=== PATIENT | female | born 1970 | race Caucasian/White ===

== ENCOUNTER 2020-03-27 13:42 | Emergency (ER) | payer BC, SELFPAY ==
[2020-03-27 13:45] VITALS: BP 161/110; PULSE 72; RESP 16; TEMP 36.7; O2SAT 96; BMI 33.4
--- NOTE | 2020-03-27 14:11 | XRR_ITS ---
PROCEDURE INFORMATION: Exam: XR Chest, 1 View Exam date and time: 03/27/2020 2:13 PM Age: 49 years old Clinical indication: Chest pain; Type not specified; Additional info: Cp TECHNIQUE: Imaging protocol: XR of the chest Views: 1 view. COMPARISON: No relevant prior studies available. FINDINGS: Lungs: Unremarkable. No consolidation. Pleural space: Unremarkable. No pleural effusion. No pneumothorax. Heart/Mediastinum: Unremarkable. No cardiomegaly. Bones/joints: Unremarkable. XR/XR chest 1V portable [id number] IMPRESSION: No acute findings.
--- NOTE | 2020-03-27 14:11 | ECG_ITS ---
[facility] Test Date: 2020-03-27 Pat Name: Anca Easton Department: Room: Gender: Female Animal Caregiver: : 1970 Requested By: Speedy Traore Order Number: [id number] Reading MD: CHAPINCITO MARINO Measurements Intervals [place] Rate: 59 P: 57 NM: 163 QRS: 26 QRSD: 97 T: 30 QT: 438 QTc: 436 Interpretive Statements SINUS BRADYCARDIA NONSPECIFIC T-WAVE ABNORMALITY No previous ECG available for comparison Electronically Signed On 03-27-2020 20:14:18 MRI TECHNOLOGIST by CHAPINCITO MARINO [id number]
--- NOTE | 2020-03-27 14:37 | W.ED.GENADLT ---
HPI - General Adult General: Chief complaint: General Medical Stated complaint: high bp 160/120 / tingling swelling on legs Time Seen by Provider: 03/27/20 14:12 Source: patient Mode of arrival: ambulatory Limitations: no limitations History of Present Illness: HPI narrative: 49-year-old female who states she has been having some dizziness along with feelings of generalized weakness. Patient just recently moved here and saw PCP last week. Her TSH was elevated at 100. She takes she typically takes 200 mcg of levothyroxine 5 times a day but her doctor increased it this week to 7 times a day. She states that she has been hypertensive and concerned that she has had slight swelling. She states she used to be on Bumex and is no longer on it. Denies any chest pain or shortness of breath. Associated symptoms: Deny chest pain, dyspnea, headache(s), nausea, rash or vomiting Review of Systems Const: Denies: fever(s), chills, body aches or change in appetite Eyes: Denies: blurry vision or eye discomfort ENMT: Denies: throat pain or dental pain Card: Denies: chest pain Resp: Denies: dyspnea GI: Denies: abdominal pain, nausea, vomiting or diarrhea : Denies: dysuria Musc: Reports: extremity swelling; Denies: neck pain or back pain Skin/Breast: Denies: rash Neuro: Denies: headache(s) Psych: Denies: depression Carlito/Lymph: Denies: easy bruising All/Imm: Denies: urticaria Physical Exam Const: COMMON NORMALS: no acute distress, patient oriented x3 and healthy appearing HENMT: COMMON NORMALS: normocephalic and atraumatic HEAD & SCALP: normocephalic and atraumatic Eye: COMMON NORMALS: Equal, round and reactive pupils present and EOMs intact bilaterally PUPIL: Yes Equal, round and reactive pupils present Neck/C-Spine: COMMON NORMALS: full ROM and supple Chest: COMMONS NORMALS: normal inspection of the chest and normal palpation of entire chest wall Resp: COMMON NORMALS: normal respiratory effort, No retractions, No use of accessory muscles and clear to auscultation bilaterally AUSCULTATION: clear to auscultation bilaterally Cardio: COMMON NORMALS: regular rate, regular rhythm and No murmurs present (Cardio) RATE: regular rate RHYTHM: regular rhythm GI: COMMON NORMALS: Normal to inspection, nondistended, normoactive bowel sounds present, Soft to palpation, non-tender and no masses PALPATION: Yes Soft to palpation Extremity: COMMON NORMALS: full ROM NARRATIVE EXTREMITY EXAM: 1+ edema to lower extremity Neuro: COMMON NORMALS: patient oriented x3, moves all extremities and no focal motor deficits Psych: COMMON NORMALS: mental status grossly normal, Normal thought process present and cooperative THOUGHT PROCESS: Normal thought process present Skin: COMMON NORMALS: no rashes or lesions noted and no wounds GENERAL SKIN EXAM: no rashes or lesions noted Course Vital Signs: Vital signs: Vital Signs Temperature 98.0 F 03/27/20 13:45 Pulse Rate 72 03/27/20 13:45 Respiratory Rate 16 03/27/20 13:45 Blood Pressure 161/110 03/27/20 13:45 Pulse Oximetry 96 03/27/20 13:45 MDM - General Adult MDM Narrative: Medical decision making narrative: Patient presents here with hypertension along with lower extremity edema. Patient is well-appearing here blood work is all normal. I will start her back on her Bumex. She is to follow-up with her primary care doctor as scheduled next week to follow her TSH levels. She has no signs of acute coronary event and I believe she is stable for discharge is return if worsening. Lab Data: Labs: Lab Results 03/27/20 03/27/20 03/27/20 Range/Units 14:20 14:30 14:30 WBC 9.1 (4.0-10.0) 10^3/ uL RBC 4.34 (4.1-5.3) 10^6/u L Hgb 13.4 (11.5-15.3) g/dL Hct 41.6 (37.0-47.0) % MCV 95.9 (81-99) fL MCH 30.9 (28.0-34.0) pg MCHC 32.2 (30.0-36.0) g/dL RDW 12.8 (12.1-15.1) % Plt Count 342 (130-400) 10^3/c mm MPV 11.2 H (7.4-10.4) fL Neut % (Auto) 55.9 % Lymph % (Auto) 34.3 % Pierce % (Auto) 6.7 % Eos % (Auto) 2.3 % Baso % (Auto) 0.6 % Neut # (Auto) 5.06 (1.8-7.7) 10^3/u L Lymph # (Auto) 3.1 (0.8-4.8) 10^3/u L Pierce # (Auto) 0.6 (0.2-0.9) 10^3/u L Eos # (Auto) 0.2 (0.0-0.8) 10^3/u L Baso # (Auto) 0.1 (0.0-0.1) 10^3/u L Nucleated RBC % (a uto) 0 % Nucleated RBCs # 0.0 /100WBC Sodium 142 (136-145) mmol/L Potassium 3.7 (3.5-5.1) mmol/L Chloride 106 (98-107) mmol/L Carbon Dioxide 26 (22-29) mmol/L Anion Gap 13.7 (5-19) BUN 12 (6-20) mg/dL Creatinine 0.8 (0.5-0.9) mg/dL GFR Calculation 75.6 L (90-130) mL/min Glucose 105 (65-115) mg/dL Calculated Osmolal ity 294 (285-295) mOsm/k g Calcium 9.3 (8.5-10.5) mg/dL Total Bilirubin 0.2 (0.15-1.2) mg/dL AST 14 (0-32) U/L ALT 13 (0-33) U/L Alkaline Phosphata se 85 (35-105) IU/L Troponin T Baselin e (0-10) ng/L NT-Pro-B Natriuret Pep 153 H (0-125) pg/mL Total Protein 6.8 (6.6-8.7) g/dL Albumin 4.7 (3.5-5.2) g/dL Globulin 2.1 (1.3-4.6) g/dL 03/27/20 Range/Units 14:30 WBC (4.0-10.0) 10^3/ uL RBC (4.1-5.3) 10^6/u L Hgb (11.5-15.3) g/dL Hct (37.0-47.0) % MCV (81-99) fL MCH (28.0-34.0) pg MCHC (30.0-36.0) g/dL RDW (12.1-15.1) % Plt Count (130-400) 10^3/c mm MPV (7.4-10.4) fL Neut % (Auto) % Lymph % (Auto) % Pierce % (Auto) % Eos % (Auto) % Baso % (Auto) % Neut # (Auto) (1.8-7.7) 10^3/u L Lymph # (Auto) (0.8-4.8) 10^3/u L Pierce # (Auto) (0.2-0.9) 10^3/u L Eos # (Auto) (0.0-0.8) 10^3/u L Baso # (Auto) (0.0-0.1) 10^3/u L Nucleated RBC % (a uto) % Nucleated RBCs # /100WBC Sodium (136-145) mmol/L Potassium (3.5-5.1) mmol/L Chloride (98-107) mmol/L Carbon Dioxide (22-29) mmol/L Anion Gap (5-19) BUN (6-20) mg/dL Creatinine (0.5-0.9) mg/dL GFR Calculation (90-130) mL/min Glucose (65-115) mg/dL Calculated Osmolal ity (285-295) mOsm/k g Calcium (8.5-10.5) mg/dL Total Bilirubin (0.15-1.2) mg/dL AST (0-32) U/L ALT (0-33) U/L Alkaline Phosphata se (35-105) IU/L Troponin T Baselin e 6 (0-10) ng/L NT-Pro-B Natriuret Pep (0-125) pg/mL Total Protein (6.6-8.7) g/dL Albumin (3.5-5.2) g/dL Globulin (1.3-4.6) g/dL Imaging Data^: CXR: Attestation: I personally reviewed and interpreted this imaging study as follows: My impression: [address] [address] XRay Report Signed Patient: Anca Easton Unit #: [id number] : 1970 Age/Sex: 49 / F ADM Date: 03/27/20 Loc: ER Room/Bed: Attending Dr: Ordering Provider/Ordering MD: Speedy Traore MD Date of Service: 03/27/20 Procedure(s): XR chest 1V portable [id number] Accession Number(s): [id number] Report Number: [id number] PROCEDURE INFORMATION: Exam: XR Chest, 1 View Exam date and time: 03/27/2020 2:13 PM Age: 49 years old Clinical indication: Chest pain; Type not specified; Additional info: Cp TECHNIQUE: Imaging protocol: XR of the chest Views: 1 view. COMPARISON: No relevant prior studies available. FINDINGS: Lungs: Unremarkable. No consolidation. Pleural space: Unremarkable. No pleural effusion. No pneumothorax. Heart/Mediastinum: Unremarkable. No cardiomegaly. Bones/joints: Unremarkable. XR/XR chest 1V portable [id number] IMPRESSION: No acute findings. EKG Data^: EKG 1: Attestation: I personally reviewed and interpreted this EKG as follows: EKG interpretation date: 03/27/20 EKG interpretation time: 14:31 Interpretation: sinus keshawn hr [address] or t wave abnormalities qrs 97 qtc 437 Computer generated interpretation: Chest X-Ray 03/27/20 14:11 IMPRESSION: No acute findings. Discharge Plan Discharge Patient Disposition: Home Clinical Impression: Edema of lower extremity Hypertension Qualifiers: Hypertension type: unspecified Qualified Code(s): I10 - Essential (primary) hypertension Condition: Stable Prescriptions: New bumetanide 0.5 mg tablet 0.5 mg PO DAILY Qty: 30 RF: 0 No Action atorvastatin 20 mg tablet 20 mg PO DAILY RF: 0 lisinopril 20 mg tablet 20 mg PO DAILY RF: 0 sertraline 100 mg tablet 200 mg PO DAILY RF: 0 lorazepam 1 mg tablet 1 mg PO BID PRN (Reason: Anxiety) RF: 0 Discharge Orders: Discharge Order (Routine); Ordered 03/27/20 Ordered By: Speedy Traore Discharge Diet: Advance as tolerated Discharge Activity: Resume usual activity Patient Instructions: Leg Edema (ED), Hypertension (ED) Coding Level of Care Code ED Personal Lines Insurance Advisor for Chg Fwd Exam Comprehensive
[2020-03-27 14:38] LABS: Basophils # 0.1 10^3/uL (0.0-0.1); Basophils % 0.6 %; Eosinophils # 0.2 10^3/uL (0.0-0.8); Eosinophils % 2.3 %; Hematocrit 41.6 % (37.0-47.0); Hemoglobin 13.4 g/dL (11.5-15.3); Lymphocytes # 3.1 10^3/uL (0.8-4.8); Lymphocytes % 34.3 %; Mean Corpuscular HGB Conc 32.2 g/dL (30.0-36.0); Mean Corpuscular Hemoglobin 30.9 pg (28.0-34.0); Mean Corpuscular Volume 95.9 fL (81-99); Mean Platelet Volume 11.2 fL (7.4-10.4); Monocytes # 0.6 10^3/uL (0.2-0.9); Monocytes % 6.7 %; Neutrophils # 5.06 10^3/uL (1.8-7.7); Neutrophils % 55.9 %; Nucleated Red Blood Cells % 0 %; Platelet Count 342 10^3/cmm (130-400); Red Blood Count 4.34 10^6/uL (4.1-5.3); Red Cell Distribution Width 12.8 % (12.1-15.1); White Blood Count 9.1 10^3/uL (4.0-10.0)
[2020-03-27 14:55] LABS: Alanine Aminotransferase 13 U/L (0-33); Albumin Level 4.7 g/dL (3.5-5.2); Alkaline Phosphatase 85 IU/L (35-105); Anion Gap 13.7 (5-19); Aspartate Amino Transferase 14 U/L (0-32); Blood Urea Nitrogen 12 mg/dL (6-20); Calcium 9.3 mg/dL (8.5-10.5); Carbon Dioxide 26 mmol/L (22-29); Chloride 106 mmol/L (98-107); Globulin 2.1 g/dL (1.3-4.6); Glomerular Filtration Rate 75.6 mL/min (90-130); Glucose 105 mg/dL (65-115); Osmolality Calculated 294 mOsm/kg (285-295); Potassium 3.7 mmol/L (3.5-5.1); Sodium 142 mmol/L (136-145); Total Bilirubin 0.2 mg/dL (0.15-1.2); Total Protein 6.8 g/dL (6.6-8.7)
[2020-03-27 14:57] LABS: Troponin(5th) Baseline 6 ng/L (0-10)
[2020-03-27 16:10] LABS: NT Pro B Type Natriuretic Pept 153 pg/mL (0-125)
--- NOTE | 2020-03-27 16:11 | ECG_ITS ---
[facility] Test Date: 2020-03-27 Pat Name: Anca Easton Department: Room: Gender: Female Mechanical Service Specialist: : 1970 Requested By: Speedy Traore Order Number: [id number] Dilip MD: CHAPINCITO MARINO Measurements Intervals [place] Rate: 55 P: 51 UT: 164 QRS: 24 QRSD: 94 T: 18 QT: 452 QTc: 433 Interpretive Statements SINUS BRADYCARDIA Compared to ECG 03/27/2020 14:31:03 T-wave abnormality no longer present Electronically Signed On 03-27-2020 20:15:56 HEBREW PROFESSOR by CHAPINCITO MARINO [id number] f
== END 2020-03-27 20:24 | disposition home or self-care (01) ==
PROVIDERS: Emergency Provider Emergency Medicine
DX: I10 Essential (primary) hypertension (principal); R60.0 Localized edema
CPT/HCPCS: 12345; 71045; 80053; 83880; 84484; 85025; 93005; 99281; 99283

== ENCOUNTER → 2020-04-11 08:06 | Outpatient (BNVA) | payer BC, SELFPAY | PROVIDERS: Referring Provider Nurse Practitioner Family; Visit Provider Internal Medicine | DX: E03.9 Hypothyroidism, unspecified (principal); E06.3 Autoimmune thyroiditis; E11.9 Type 2 diabetes mellitus without complications; E66.9 Obesity, unspecified; Z68.30 Body mass index [BMI] 30.0-30.9, adult; E78.2 Mixed hyperlipidemia; F41.9 Anxiety disorder, unspecified; F43.10 Post-traumatic stress disorder, unspecified; I10 Essential (primary) hypertension; R63.5 Abnormal weight gain | CPT/HCPCS: 99205 ==

== ENCOUNTER 2020-04-14 08:33 | Outpatient (CLI) | payer BC, SELFPAY ==
[2020-04-14 09:58] LABS: Chol HDL Ratio 2.72 mg/dL (0.0-4.40); Cholesterol 128 mg/dL (0-200); HDL Cholesterol 47 mg/dL (60-100); LDL Cholesterol Calculated 59 mg/dL (50-129); LDL HDL Ratio 1.26 RATIO (0.00-3.22); Thyroid Stimulating Hormone 2.05 uIU/mL (0.27-4.20); Triglycerides 112 mg/dL (0-150)
[2020-04-14 12:45] LABS: Free T4 Free Thyroxine 1.54 ng/dL (0.82-1.77)
[2020-04-15 09:19] LABS: T3 Total 145 ng/dL (76-181)
[2020-04-18 13:53] LABS: Plasma Renin Activity LC/MS/MS 22.18 ng/mL/h (0.25-5.82)
[2020-04-18 21:22] LABS: TSH Receptor Binding Antibody <1.00 IU/L (< OR = 2.00)
== END 2020-04-14 08:34 | disposition home or self-care (01) ==
LOC: LAB 08:41
PROVIDERS: Visit Provider Internal Medicine
DX: E03.8 Other specified hypothyroidism (principal); E06.3 Autoimmune thyroiditis; E78.5 Hyperlipidemia, unspecified; F41.9 Anxiety disorder, unspecified; I10 Essential (primary) hypertension; R63.5 Abnormal weight gain
CPT/HCPCS: 36415; 80061; 82088; 83516; 84244; 84439; 84443; 84480

== ENCOUNTER 2020-04-17 11:19 | Outpatient (CLI) | payer BC, SELFPAY ==
[2020-04-17 11:54] LABS: Urine Creatinine 95 mg/dL (28-217)
[2020-04-17 13:36] LABS: Total Volume Urine 2400 ml
[2020-04-21 19:28] LABS: Free Cortisol Urine 42.7 mcg/24 h (4.0-50.0); Total Urine 2400 mL; Urine Creatinine 2.26 g/24 h (0.50-2.15)
== END 2020-04-17 11:20 | disposition home or self-care (01) ==
LOC: LAB 11:22
PROVIDERS: Visit Provider Internal Medicine
DX: E03.8 Other specified hypothyroidism (principal); E06.3 Autoimmune thyroiditis; E78.5 Hyperlipidemia, unspecified; F41.9 Anxiety disorder, unspecified; I10 Essential (primary) hypertension; R63.5 Abnormal weight gain
CPT/HCPCS: 82530; 82570

== ENCOUNTER → 2020-04-25 09:11 | Outpatient (BNVA) | payer BC, SELFPAY | PROVIDERS: Visit Provider Internal Medicine | DX: E03.9 Hypothyroidism, unspecified (principal); E06.3 Autoimmune thyroiditis; E11.9 Type 2 diabetes mellitus without complications; E66.9 Obesity, unspecified; E78.2 Mixed hyperlipidemia; F41.9 Anxiety disorder, unspecified; F43.10 Post-traumatic stress disorder, unspecified; I10 Essential (primary) hypertension; R63.5 Abnormal weight gain | CPT/HCPCS: 99213 ==

== ENCOUNTER 2020-10-18 13:46 | Outpatient (CLI) | payer BC, SELFPAY ==
--- NOTE | 2020-10-18 13:51 | MM_ITS ---
WS: [id number] BILATERAL SCREENING DIGITAL MAMMOGRAM WITH CAD HISTORY: SCREENING COMPARISON: None available. Bilateral CC and MLO views submitted. Computer aided detection analyzed. Breast composition: There are scattered areas of fibroglandular density. No suspicious masses, microc alcifications or architectural distortion. Benign calcification RIGHT breast. MM/[place] [id number] IMPRESSION: BI-RADS: 2-Benign FOLLOW UP: 1 Year Follow-up
== END 2020-10-18 13:47 | disposition home or self-care (01) ==
LOC: RADSHAW 13:50
PROVIDERS: Visit Provider Nurse Practitioner Family
DX: Z12.31 Encounter for screening mammogram for malignant neoplasm of breast (principal)
CPT/HCPCS: 77067

== ENCOUNTER 2020-10-20 10:45 | Outpatient (CLI) | payer BC, SELFPAY ==
--- NOTE | 2020-10-20 10:58 | XR_ITS ---
WS: [id number] PROCEDURE: XR chest 2V* [id number] CLINICAL INFORMATION: SHORTNESS OF BREATH, PERSISTENT COUGH, ACUTE BRONCHITIS COMPARISON: March 27, 2020 FINDINGS: Heart: Normal cardiac silhouette. Lungs: Lungs are clear. No consolidation or pleural fluid. No acute pulmonary infiltrates. Bones: Normal visualized bony structures. XR/XR chest 2V* [id number] IMPRESSION: Normal chest
== END 2020-10-20 10:46 | disposition home or self-care (01) ==
LOC: RADWPI 10:57
PROVIDERS: Visit Provider Nurse Practitioner Family
DX: R06.02 Shortness of breath (principal); R05 Cough; J20.9 Acute bronchitis, unspecified
CPT/HCPCS: 71046

== ENCOUNTER → 2020-11-30 11:40 | Outpatient (BNVA) | payer BC, SELFPAY | PROVIDERS: Visit Provider Internal Medicine Critical Care Medicine | DX: J44.9 Chronic obstructive pulmonary disease, unspecified (principal); Z20.822 Contact with and (suspected) exposure to COVID-19 | CPT/HCPCS: 87635 ==

== ENCOUNTER → 2020-12-22 13:22 | Outpatient (BNVA) | payer BC, SELFPAY | PROVIDERS: Visit Provider Internal Medicine Critical Care Medicine | DX: Z01.812 Encounter for preprocedural laboratory examination (principal); Z20.822 Contact with and (suspected) exposure to COVID-19 | CPT/HCPCS: 87635 ==

== ENCOUNTER 2021-01-08 12:00 | Outpatient (CLI) | payer BC, SELFPAY | END 2021-01-08 12:01 | disposition home or self-care (01) | LOC: SLEEP 01-09 12:10 | PROVIDERS: Visit Provider Internal Medicine Critical Care Medicine | DX: G47.10 Hypersomnia, unspecified (principal) | CPT/HCPCS: G0399 ==

== ENCOUNTER 2021-04-30 10:29 | Outpatient (RCR) | payer BC, SELFPAY | END 2021-05-25 23:59 | disposition home or self-care (01) | LOC: SPT 10:29 | PROVIDERS: Visit Provider Clinical Nurse Specialist Adult Health | DX: M25.511 Pain in right shoulder (principal) | CPT/HCPCS: 97110; 97162 ==

== ENCOUNTER 2022-05-16 13:00 | Outpatient (CLI) | payer BC, SELFPAY | END 2022-05-16 13:01 | disposition home or self-care (01) | LOC: SLEEP 07-17 10:24 | PROVIDERS: PCP Clinical Nurse Specialist Adult Health; Visit Provider Internal Medicine Pulmonary Disease | DX: G47.33 Obstructive sleep apnea (adult) (pediatric) (principal); J44.1 Chronic obstructive pulmonary disease with (acute) exacerbation; J45.901 Unspecified asthma with (acute) exacerbation | CPT/HCPCS: 94762 ==

== ENCOUNTER 2022-06-04 10:06 | Outpatient (CLI) | payer BC, MEDICAID, SELFPAY | END 2022-06-04 10:07 | disposition home or self-care (01) | PROVIDERS: PCP Clinical Nurse Specialist Adult Health; Visit Provider Internal Medicine Pulmonary Disease | DX: J44.9 Chronic obstructive pulmonary disease, unspecified (principal) | CPT/HCPCS: 94618; J7613 ==

== ENCOUNTER 2022-06-17 09:59 | Outpatient (CLI) | payer BC, MEDICAID, SELFPAY ==
--- NOTE | 2022-06-17 | CT_ITS ---
WS: [id number] LDCT LUNG CANCER SCREENING HISTORY: F17.210 TECHNIQUE: Axial imaging performed from the apices to 1 cm below the costophrenic angles. Coronal and sagittal reformats are submitted with axial MIP series. All CT scans at [facility] use at least one of these dose optimization techniques: automated exposure control; mA and/or kV adjustment per patient size (includes targeted exams where dose is matched to clinical indication); or iterativ e reconstruction. DLP: 84.07 mGy.cm DIvol: Mean CTDIvol: 1.60 (mGy) COMPARISON: None available. Diagnostic quality: Satisfactory Lung Nodules: No pulmonary nodules. There is a very thin septation proximal LEFT lower lobe bronchus. Lungs: Mild hyperexpansion from emphysema. Heart: Normal size heart. No pericardial effusion. Other findings: Prior cholecystectomy. No adrenal mass. CT/CT lung screening [id number] IMPRESSION: LUNG-RADS: 1-Negative FOLLOW UP: 12 Month: Continue annual screening with LDCT OTHER FINDINGS (S MODIFIER): None.
== END 2022-06-17 10:00 | disposition home or self-care (01) ==
LOC: RAD 10:08
PROVIDERS: PCP Clinical Nurse Specialist Adult Health; Visit Provider Internal Medicine Pulmonary Disease
DX: Z12.2 Encounter for screening for malignant neoplasm of respiratory organs (principal); F17.210 Nicotine dependence, cigarettes, uncomplicated
CPT/HCPCS: 71271

== ENCOUNTER → 2022-07-31 11:57 | Outpatient (BNVA) | payer BC, MEDICAID, SELFPAY | PROVIDERS: PCP Clinical Nurse Specialist Adult Health; Visit Provider Clinical Nurse Specialist Adult Health | DX: K85.90 Acute pancreatitis without necrosis or infection, unspecified (principal); K29.70 Gastritis, unspecified, without bleeding | CPT/HCPCS: 80053; 82150; 83690; 85025 ==

== ENCOUNTER → 2022-09-13 07:59 | Outpatient (BNVA) | payer BC, MEDICAID, SELFPAY | PROVIDERS: PCP Clinical Nurse Specialist Adult Health; Visit Provider Clinical Nurse Specialist Adult Health | DX: E03.8 Other specified hypothyroidism (principal) | CPT/HCPCS: 84443; 87491; 87591; 87661 ==

== ENCOUNTER → 2022-10-22 08:44 | Outpatient (BNVA) | payer BC, MEDICAID, SELFPAY | PROVIDERS: PCP Clinical Nurse Specialist Adult Health; Visit Provider Obstetrics & Gynecology | DX: R33.9 Retention of urine, unspecified (principal); R10.2 Pelvic and perineal pain | CPT/HCPCS: 76830; 76857 ==

== ENCOUNTER → 2022-10-29 13:08 | Outpatient (BNVA) | payer BC, MEDICAID, SELFPAY | PROVIDERS: PCP Clinical Nurse Specialist Adult Health; Visit Provider Clinical Nurse Specialist Adult Health | DX: E03.8 Other specified hypothyroidism (principal) | CPT/HCPCS: 83036; 84443 ==

== ENCOUNTER → 2023-01-05 14:17 | Outpatient (BNVA) | payer BC, MEDICAID, SELFPAY | PROVIDERS: PCP Clinical Nurse Specialist Adult Health; Visit Provider Emergency Medicine | DX: R07.9 Chest pain, unspecified (principal) | CPT/HCPCS: 71046 ==

== ENCOUNTER → 2023-01-15 11:40 | Outpatient (BNVA) | payer BC, MEDICAID, SELFPAY | PROVIDERS: PCP Clinical Nurse Specialist Adult Health; Visit Provider Internal Medicine Pulmonary Disease | DX: J44.9 Chronic obstructive pulmonary disease, unspecified (principal) | CPT/HCPCS: 83690 ==

== ENCOUNTER → 2023-06-26 10:52 | Outpatient (BNVA) | payer BC, SELFPAY | PROVIDERS: PCP Clinical Nurse Specialist Adult Health; Visit Provider Clinical Nurse Specialist Adult Health | DX: E11.9 Type 2 diabetes mellitus without complications (principal); I10 Essential (primary) hypertension; F43.10 Post-traumatic stress disorder, unspecified; Z00.00 Encounter for general adult medical examination without abnormal findings | CPT/HCPCS: 80053; 83036 ==

== ENCOUNTER 2023-08-08 07:57 | Outpatient (CLI) | payer BC, MEDICAID, SELFPAY ==
--- NOTE | 2023-08-08 08:00 | CT_ITS ---
WS: [id number] LDCT LUNG CANCER SCREENING TECHNIQUE: Noncontrast CT of the chest with coronal and sagittal reformatted images. CLINICAL INFORMATION: Cancer Screen COMPARISON: CT 06/17/2022 DLP: 109.41 mGy.cm DIvol: Mean CTDIvol: 2.60 (mGy) All CT scans at [facility] use at least one of these dose optimization techniques: automat ed exposure control; mA and/or kV adjustment per patient size (includes targeted exams where dose is matched to clinical indication); or iterative reconstruction. FINDINGS: Mild hyperinflation. Noncalcified nodule RIGHT upper lobe posteriorly measuring 5 mm. Recom mend 6-month follow-up. Tiny subpleural micronodule RIGHT upper lobe anteriorly. Slight subsegmental atelectasis in the lung bases. Slight subsegmental atelectasis in the RIGHT middle lobe. Normal caliber thoracic aorta. No mediastinal or hilar lymphadenopathy. No axillary lymphadenopathy. Cholecystectomy clips. LEFT adrenal gland is normal. RIGHT adrenal adenoma measuring 2.0 cm is stable compared to previous. Normal GE junction. Noncontrast spleen is normal. Hypertrophic changes thoraci c spine. IMPRESSION: Noncalcified nodule RIGHT upper lobe partially measuring 5 mm. Recommend 6-month follow-u p. CT/CT lung screening [id number] LUNG-RADS: 3-Probably Benign FOLLOW UP: 6 Month LDCT
== END 2023-08-08 07:58 | disposition home or self-care (01) ==
LOC: RAD 07:57
PROVIDERS: PCP Clinical Nurse Specialist Adult Health; Visit Provider Internal Medicine Pulmonary Disease
DX: Z12.2 Encounter for screening for malignant neoplasm of respiratory organs (principal); F17.210 Nicotine dependence, cigarettes, uncomplicated; R91.8 Other nonspecific abnormal finding of lung field; J98.11 Atelectasis
CPT/HCPCS: 71271

== ENCOUNTER 2023-09-04 07:12 | Day surgery (SDC) | payer BC, MEDICAID, SELFPAY ==
[2023-09-04 07:30] VITALS: BP 143/80; PULSE 77; RESP 18; TEMP 36.2; O2SAT 95; BMI 36.9
[2023-09-04] MEDS: sodium chloride 0.9% 1,000 ML 30 ML IV (07:36)
--- NOTE | 2023-09-04 08:00 | ANES.PREANE2 ---
Pre-Anesthetic Assessment Height/Weight: Height 1.7 m Weight 107.048 kg Temp Pulse Resp BP Pulse Ox O2 Del Method 97.2 F L 77 18 143/80 95 Room Air 09/04/23 07:30 09/04/23 07:30 09/04/23 07:30 09/04/23 07:30 09/04/23 07:30 09/04/23 07:30 Preop Diagnosis: GERD/screening Operation Date: 09/04/23 08:15 Proposed Procedures p EGD(Not Applicable) - Jonathan Vu DO s Colonoscopy(Not Applicable) - Jonathan Vu DO Familial anesthetic complications: none Was Beta Julio C taken within 24 hours: N/A Was Clonidine taken within 24 hours: N/A Last intake: Intake Last Liquid Date 09/03/23 Last Liquid Time 22:00 Last Solid Date 09/02/23 Last Solid Time 18:00 Social Tobacco and No alcohol 2 pack(s) per day 42 pack years Exam alert, oriented x 3, clear to auscultation bilaterally and regular rate & rhythm Airway Submandibular: within normal limits Cervical ROM: within normal limits Mallampati: Class I Comments: Comments: some upper but no lower Pulmonary Asthma, Chronic Obstructive Pulmonary Disease and Sleep Apnea inhaler this am CV/HEM Hypertension SVT-per patient None reported Hepatic None reported GI Gastroesophageal Reflux Disease Metabolic Diabetes Mellitus, Hyperlipidemia, Morbid Obesity and Thyroid Disease [facility] None reported Neuropsych Anxiety and Bipolar PTSD Anesthetic Plan ASA status: 3 Anesthesia: MAC Risk of > 500 ml blood loss (7ml/kg in children): No Medications/Allergies Home Medications Medication Instructions Recorded Confirmed Last Taken Type lisinopril 40 mg tablet 40 mg PO DAILY #90 tabs 05/02/22 09/02/23 09/03/23 Rx blood sugar diagnostic (OneTouch #100 ea 11/01/22 08/20/23 09/03/23 Rx Verio test strips) blood-glucose meter (OneTouch #1 ea 11/01/22 08/20/23 09/03/23 Rx Verio Flex Meter) sucralfate 100 mg/mL oral 5 ml PO QID #200 mL 01/15/23 09/02/23 09/03/23 Rx suspension lancets 33 gauge #100 ea 03/19/23 08/20/23 09/03/23 Rx bethanechol chloride 10 mg tablet 10 mg PO BID #60 tabs 03/25/23 09/02/23 09/03/23 Rx estradiol 1 mg tablet (Estrace) 1 mg PO DAILY #60 tabs 03/25/23 09/02/23 09/03/23 Rx atorvastatin 20 mg tablet 20 mg PO DAILY #90 tabs 04/16/23 09/02/23 09/03/23 Rx docusate sodium 100 mg capsule 100 mg PO BID #60 caps 06/03/23 09/02/23 09/03/23 Rx (Colace) albuterol sulfate 90 mcg/actuation 2 puff inhalation Q6H PRN 06/23/23 09/02/23 09/04/23 Rx aerosol inhaler (Ventolin HFA) shortness of breath or wheezing #8.5 grams bumetanide 0.5 mg tablet 0.5 mg PO DAILY #90 tabs 06/23/23 09/02/23 09/03/23 Rx tiotropium bromide 18 mcg capsule 1 cap inhalation DAILY #60 06/23/23 09/02/23 09/04/23 Rx with inhalation device (Spiriva inhalations with HandiHaler) potassium chloride 10 mEq 10 meq PO DAILY #90 caps 07/14/23 09/02/23 09/03/23 Rx capsule,extended release fluticasone propionate 50 1 spray intranasal BID #16 grams 07/23/23 09/02/23 09/03/23 Rx mcg/actuation nasal spray,suspension (Flonase Allergy Relief) levothyroxine 175 mcg tablet 175 mcg PO DAILY #90 tabs 07/23/23 09/02/23 09/03/23 Rx albuterol sulfate 2.5 mg/3 mL 2.5 mg (3 mL) inhalation Q4H PRN 07/24/23 09/02/23 Unknown Rx (0.083 %) solution for nebulization shortness of breath or wheezing #90 mL loratadine 10 mg tablet (Allergy 10 mg PO DAILY #90 tabs 07/30/23 09/02/23 09/03/23 Rx Relief (loratadine)) pantoprazole 40 mg tablet,delayed 40 mg PO BID 6 weeks #84 tabs 08/04/23 09/02/23 09/03/23 Rx release (Protonix) alprazolam 0.5 mg tablet (Xanax) 0.25 mg (1/2 x 0.5 mg) PO DAILY 08/20/23 09/02/23 09/03/23 Rx PRN anxiety #15 tabs duloxetine 30 mg capsule,delayed 30 mg PO DAILY #30 caps 08/20/23 09/02/23 09/03/23 Rx release (Cymbalta) lamotrigine 150 mg tablet 150 mg PO DAILY #30 tabs 08/20/23 09/02/23 09/03/23 Rx (Lamictal) prazosin 5 mg capsule 10 mg (2 x 5 mg) PO .HS #60 caps 08/20/23 09/02/23 09/03/23 Rx naproxen sodium 220 mg capsule 220 mg PO BID PRN Headache 09/02/23 09/02/23 Unknown History (Aleve) Allergies Allergy/AdvReac Type Severity Reaction Status Date / Time morphine Allergy Severe ADR-Vomitin Verified 09/04/23 07:25 g Current Medications Generic Name Dose Route Start Last Admin Trade Name Freq PRN Reason Stop Dose Admin Sodium Chloride 1,000 mls @ 30 mls/hr 09/04/23 07:30 09/04/23 07:36 Sodium Chloride 0.9% IV 09/05/23 07:29 30 mls/hr .Q24H BRIAN Administration PFSH Anesthesia Medical History Type 2 diabetes mellitus without complications Essential hypertension Major depression Hyperlipidemia Hypothyroidism Obstructive sleep apnea noncompliant with CPAP Chronic obstructive pulmonary disease Nicotine addiction Allergic rhinosinusitis Anxiety PTSD (post-traumatic stress disorder) Psychiatric care GERD (gastroesophageal reflux disease) Encounter for smoking cessation counseling Obesity (BMI 30-39.9) Surgical History History of hysterectomy History of laparoscopic cholecystectomy History of tonsillectomy Family History Mother Diabetes Grandmother Diabetes Social History Smoking and tobacco/nicotine status: current every day tobacco/nicotine user cigarettes Packs smoked per day: 1.5 Years cigarettes smoked: 40 [ Other cigarette details: started at age 10] Quit status (tobacco/nicotine): considering quitting Second hand smoke exposure: Yes Alcohol intake: current Substance/Drug Use: former Lives independently: Yes Household members: none Housing: House Marital status: Number of children: 2 Highest education level completed: GED or Equivalent Current occupational status: employed Do you think of yourself as: Straight/Heterosexual Current gender identity: Female Data Anesthesia Cardiac Studies: No Data to Display
--- NOTE | 2023-09-04 08:16 | PM.HP ---
Providers/Chief Complaint Primary Care Provider: Gabriel Cool Chief Complaint: K21.00, K92.0, Z12.11 History of Present Illness Anca Zhou is a 52 year old female Review of Systems General: Reports: 10 or more systems reviewed and unremarkable except in HPI and below Medications/Allergies Home Medications Medication Instructions Recorded Confirmed Last Taken Type lisinopril 40 mg tablet 40 mg PO DAILY #90 tabs 05/02/22 09/02/23 09/03/23 Rx blood sugar diagnostic (OneTouch #100 ea 11/01/22 08/20/23 09/03/23 Rx Verio test strips) blood-glucose meter (OneTouch #1 ea 11/01/22 08/20/23 09/03/23 Rx Verio Flex Meter) sucralfate 100 mg/mL oral 5 ml PO QID #200 mL 01/15/23 09/02/23 09/03/23 Rx suspension lancets 33 gauge #100 ea 03/19/23 08/20/23 09/03/23 Rx bethanechol chloride 10 mg tablet 10 mg PO BID #60 tabs 03/25/23 09/02/23 09/03/23 Rx estradiol 1 mg tablet (Estrace) 1 mg PO DAILY #60 tabs 03/25/23 09/02/23 09/03/23 Rx atorvastatin 20 mg tablet 20 mg PO DAILY #90 tabs 04/16/23 09/02/23 09/03/23 Rx docusate sodium 100 mg capsule 100 mg PO BID #60 caps 06/03/23 09/02/23 09/03/23 Rx (Colace) albuterol sulfate 90 mcg/actuation 2 puff inhalation Q6H PRN 06/23/23 09/02/23 09/04/23 Rx aerosol inhaler (Ventolin HFA) shortness of breath or wheezing #8.5 grams bumetanide 0.5 mg tablet 0.5 mg PO DAILY #90 tabs 06/23/23 09/02/23 09/03/23 Rx tiotropium bromide 18 mcg capsule 1 cap inhalation DAILY #60 06/23/23 09/02/23 09/04/23 Rx with inhalation device (Spiriva inhalations with HandiHaler) potassium chloride 10 mEq 10 meq PO DAILY #90 caps 07/14/23 09/02/2309/02/24 Rx capsule,extended release fluticasone propionate 50 1 spray intranasal BID #16 grams 07/23/23 09/02/23 09/03/23 Rx mcg/actuation nasal spray,suspension (Flonase Allergy Relief) levothyroxine 175 mcg tablet 175 mcg PO DAILY #90 tabs 07/23/23 09/02/23 09/03/23 Rx albuterol sulfate 2.5 mg/3 mL 2.5 mg (3 mL) inhalation Q4H PRN 07/24/23 09/02/23 Unknown Rx (0.083 %) solution for nebulization shortness of breath or wheezing #90 mL loratadine 10 mg tablet (Allergy 10 mg PO DAILY #90 tabs 07/30/23 09/02/23 09/03/23 Rx Relief (loratadine)) pantoprazole 40 mg tablet,delayed 40 mg PO BID 6 weeks #84 tabs 08/04/23 09/02/23 09/03/23 Rx release (Protonix) alprazolam 0.5 mg tablet (Xanax) 0.25 mg (1/2 x 0.5 mg) PO DAILY 08/20/23 09/02/23 09/03/23 Rx PRN anxiety #15 tabs duloxetine 30 mg capsule,delayed 30 mg PO DAILY #30 caps 08/20/23 09/02/23 09/03/23 Rx release (Cymbalta) lamotrigine 150 mg tablet 150 mg PO DAILY #30 tabs 08/20/23 09/02/23 09/03/23 Rx (Lamictal) prazosin 5 mg capsule 10 mg (2 x 5 mg) PO .HS #60 caps 08/20/23 09/02/23 09/03/23 Rx naproxen sodium 220 mg capsule 220 mg PO BID PRN Headache 09/02/23 09/02/23 Unknown History (Aleve) Allergies Allergy/AdvReac Type Severity Reaction Status Date / Time morphine Allergy Severe ADR-Vomitin Verified 09/04/23 07:25 g PFSH Acute PFSH: Medical History (Updated 09/04/23 @ 08:16 by Jonathan Vu DO) Screening for colon cancer Type 2 diabetes mellitus without complications Essential hypertension Major depression Hyperlipidemia Hypothyroidism Obstructive sleep apnea noncompliant with CPAP Chronic obstructive pulmonary disease Nicotine addiction Allergic rhinosinusitis Anxiety PTSD (post-traumatic stress disorder) Psychiatric care GERD (gastroesophageal reflux disease) Encounter for smoking cessation counseling Obesity (BMI 30-39.9) Surgical History History of hysterectomy History of laparoscopic cholecystectomy History of tonsillectomy Family History Mother Diabetes Grandmother Diabetes Social History Smoking and tobacco/nicotine status: current every day tobacco/nicotine user cigarettes Packs smoked per day: 1.5 Years cigarettes smoked: 40 [ Other cigarette details: started at age 10] Quit status (tobacco/nicotine): considering quitting Second hand smoke exposure: Yes Alcohol intake: current Substance/Drug Use: former Lives independently: Yes Household members: none Housing: House Marital status: Number of children: 2 Highest education level completed: GED or Equivalent Current occupational status: employed Do you think of yourself as: Straight/Heterosexual Current gender identity: Female Vitals/I&O/Wt Last Vital Signs Temp 97.2 F L 09/04/23 07:30 Pulse 77 09/04/23 07:30 Resp 18 09/04/23 07:30 BP 143/80 09/04/23 07:30 Pulse Ox 95 09/04/23 07:30 O2 Del Method Room Air 09/04/23 07:30 Weight last 48 hrs Weight 236 lb A&P Assessment and plan (1) GERD (gastroesophageal reflux disease): Qualifiers: Esophagitis presence: with esophagitis Esophagitis bleeding: without hemorrhage Qualified Code(s): K21.00 - Gastro-esophageal reflux disease with esophagitis, without bleeding (2) Hematemesis: Plan EGD and colonoscopy Attestations Medical Necessity Statement*: Home Coding Level of Care Code Acute Code for g Fwd Diagnoses Gastroesophageal reflux disease with esophagitis without hemorrhage K21.00 Esophagitis presence: with esophagitis Esophagitis bleeding: without hemorrhage Hematemesis K92.0
[2023-09-04 09:11] VITALS: BP 160/96; PULSE 62; RESP 17; TEMP 36.2; O2SAT 93
--- NOTE | 2023-09-04 09:16 | ANE.PACU2 ---
Inpatient post-anesthesia follow up: Airway intact: Yes Vital signs: Temperature 97.1 F Pulse Rate 62 Respiratory Rate 17 Blood Pressure 160/96 Pulse Oximetry 93 Oxygen Delivery Me thod Room Air Oxygen Flow Rate Fraction of Inspir ed Oxygen Hydration adequate: Yes Nausea and vomiting: No Pain level: 1 Mental status: Baseline
[2023-09-04 09:21] VITALS: BP 154/63; PULSE 66; RESP 18; O2SAT 96
== END 2023-09-04 09:40 | disposition home or self-care (01) ==
PROVIDERS: PCP Clinical Nurse Specialist Adult Health; Visit Provider Surgery
PROC: 0DJ08ZZ Inspection of Upper Intestinal Tract, Via Natural or Artificial Opening Endoscopic (ICD-10-PCS; CPT 43235; principal; 2023-09-04 08:15)
PROC: 0DJD8ZZ Inspection of Lower Intestinal Tract, Via Natural or Artificial Opening Endoscopic (ICD-10-PCS; CPT 45378; 2023-09-04 08:15)
DX: Z12.11 Encounter for screening for malignant neoplasm of colon (principal); K29.70 Gastritis, unspecified, without bleeding; E11.9 Type 2 diabetes mellitus without complications; I10 Essential (primary) hypertension; E78.5 Hyperlipidemia, unspecified; E03.9 Hypothyroidism, unspecified; G47.33 Obstructive sleep apnea (adult) (pediatric); J44.9 Chronic obstructive pulmonary disease, unspecified; E66.9 Obesity, unspecified; Z68.37 Body mass index [BMI] 37.0-37.9, adult; F17.210 Nicotine dependence, cigarettes, uncomplicated
CPT/HCPCS: 43239; 45385; 88305; 88342; J2250; J2704; J7030

== ENCOUNTER 2023-11-20 13:49 | Outpatient (CLI) | payer BC, MEDICAID, SELFPAY ==
--- NOTE | 2023-11-20 13:55 | MM_ITS ---
WS: [id number] VIEWS: MLO and CC views both breasts. 3D digital tomosynthesis is also included in this exam. Comparison made with prior exam of 10/18/2020. Findings: There was no sign of mass, architectural distortion or suspicious calcification in either breast. The breasts are almost entirely fatty MM/[place] [id number] Impression: BI-RADS: 1-Negative FOLLOW-UP: 1 Year Follow-up This mammogram was also analyzed by the Computer Aided Detection System [employer].
== END 2023-11-20 13:50 | disposition home or self-care (01) ==
LOC: RAD 13:50
PROVIDERS: PCP Clinical Nurse Specialist Adult Health; Visit Provider Clinical Nurse Specialist Adult Health
DX: Z12.31 Encounter for screening mammogram for malignant neoplasm of breast (principal); R92.313 Mammographic fatty tissue density, bilateral breasts
CPT/HCPCS: 77063; 77067

== ENCOUNTER → 2024-01-07 08:15 | Outpatient (BNVA) | payer BC, MEDICAID, SELFPAY | PROVIDERS: PCP Clinical Nurse Specialist Adult Health; Visit Provider Clinical Nurse Specialist Adult Health | DX: E11.9 Type 2 diabetes mellitus without complications (principal); E03.8 Other specified hypothyroidism; E06.3 Autoimmune thyroiditis | CPT/HCPCS: 80053; 81000; 83036; 84443; 85025 ==

== ENCOUNTER → 2024-01-12 14:00 | Outpatient (BNVA) | payer BC, MEDICAID, SELFPAY | PROVIDERS: PCP Clinical Nurse Specialist Adult Health; Visit Provider Clinical Nurse Specialist Adult Health | DX: R74.01 Elevation of levels of liver transaminase levels (principal) | CPT/HCPCS: 86705; 86706; 86709; 86803; 87340 ==

== ENCOUNTER 2024-01-13 13:42 | Outpatient (CLI) | payer BC, MEDICAID, SELFPAY ==
--- NOTE | 2024-01-13 14:00 | CT_ITS ---
WS: [id number] CT chest wo con [id number] HISTORY: follow up TECHNIQUE: Axial imaging performed through the thorax. Coronal and sagittal reformats are submitted. All CT scans at [facility] use at least one of these dose optimization techniques: automated exposure control; mA and/or kV adjustment per patient size (includes targeted exams where dose is mat ched to clinical indication); or iterative reconstruction. CONTRAST: None DLP: 688.31 mGy.cm COMPARISON: 08/08/2023 lung screening Lungs and central airway: Mild hyperinflation and chronic emphysema. Reidentified is a 5 mm noncalcif ied pulmonary nodule RIGHT upper lobe adjacent to the fissure which is unchanged in size. Mild mosaic attenuation RIGHT middle lobe. Pleura: Normal. No pleural effusion. Heart and pericardium: Normal size heart with no pericardial effusion. Mediastinum and jordy: No mediastinum or hilar adenopathy. Vessels: Mild atherosclerosis aorta. Chest wall and lower neck: No soft tissue masses. Upper abdomen: Small hiatal hernia. Enlarged liver with hepatic steatosis. Prior cholecystectomy. RIG HT adrenal adenoma. LEFT adrenal gland is normal. Mild hypertrophic changes thoracic spine. Osseous structures: Hypertrophic thoracic spondylosis. CT/CT chest wo con [id number] IMPRESSION: 1. Recommend additional 6 to 12-month noncontrast chest CT follow-up to caryn aguilar long-term stability is a 5 mm nodule in the RIGHT upper lobe. 2. Prior cholecystectomy. 3. No adenopathy identified. 4. Mild hepatic steatosis and hepatomegaly. 5. Stable RIGHT adrenal adenoma.
== END 2024-01-13 13:43 | disposition home or self-care (01) ==
LOC: RAD 13:43
PROVIDERS: PCP Clinical Nurse Specialist Adult Health; Visit Provider Clinical Nurse Specialist Adult Health
DX: R91.1 Solitary pulmonary nodule (principal); Z90.49 Acquired absence of other specified parts of digestive tract; K76.0 Fatty (change of) liver, not elsewhere classified; D35.01 Benign neoplasm of right adrenal gland; J43.9 Emphysema, unspecified; I70.0 Atherosclerosis of aorta; M47.814 Spondylosis without myelopathy or radiculopathy, thoracic region
CPT/HCPCS: 71250; 80053; 81000; 83036; 84443; 85025

== ENCOUNTER 2024-01-20 07:57 | Outpatient (CLI) | payer BC, MEDICAID, SELFPAY ==
--- NOTE | 2024-01-20 08:15 | US_ITS ---
WS: [id number] RIGHT UPPER QUADRANT ULTRASOUND HISTORY: transaminitis COMPARISON: Chest CT 01/13/2024 Liver: 19.5 cm in length. Liver is moderately enlarged. Surface irregularity suggestive of cirrhosis. No mass. No bile duct dilatation. There is a hypoechoic area just superior to the kidney measuring 2 .5 x 2.0 x 2.0 cm. This is consistent with an adrenal adenoma seen on prior imaging studies. Portal Vein: Normal hepatopetal flow with monophasic waveform. Gallbladder: Normally distended gallbladder with no stones or wall thickening. CBD: 0.5 cm Pancreas: Poorly visualized due to body habitus. Right kidney: 11.1 cm in length. Normal size and echogenicity. No hydronephrosis or mass. Aorta and IVC: Unremarkable abdominal aorta and IVC. No ascites. US/US liver [id number] IMPRESSION: 1. Prior cholecystectomy. 2. Moderate hepatomegaly with changes suspicious for hepatic steatosis and pos sible cirrhosis. 3. RIGHT adrenal adenoma.
== END 2024-01-20 07:58 | disposition home or self-care (01) ==
LOC: RAD 07:57
PROVIDERS: PCP Clinical Nurse Specialist Adult Health; Visit Provider Clinical Nurse Specialist Adult Health
DX: R74.01 Elevation of levels of liver transaminase levels (principal); R16.0 Hepatomegaly, not elsewhere classified; Z90.49 Acquired absence of other specified parts of digestive tract; D35.01 Benign neoplasm of right adrenal gland
CPT/HCPCS: 76705

== ENCOUNTER → 2024-01-21 10:12 | Outpatient (BNVA) | payer BC, MEDICAID, SELFPAY | PROVIDERS: PCP Clinical Nurse Specialist Adult Health; Visit Provider Clinical Nurse Specialist Adult Health | DX: D35.00 Benign neoplasm of unspecified adrenal gland (principal) | CPT/HCPCS: 82533; 82627 ==

== ENCOUNTER → 2024-03-18 15:41 | Outpatient (BNVA) | payer BC, SELFPAY | PROVIDERS: PCP Clinical Nurse Specialist Adult Health; Visit Provider Clinical Nurse Specialist Adult Health | DX: E11.40 Type 2 diabetes mellitus with diabetic neuropathy, unspecified (principal); I10 Essential (primary) hypertension | CPT/HCPCS: 80053 ==

== ENCOUNTER → 2024-03-22 14:23 | Outpatient (BNVA) | payer BC, SELFPAY | PROVIDERS: PCP Clinical Nurse Specialist Adult Health; Visit Provider Nurse Practitioner Psychiatric/Mental Health | DX: Z79.899 Other long term (current) drug therapy (principal) | CPT/HCPCS: 80307 ==

== ENCOUNTER → 2024-05-25 11:43 | Outpatient (BNVA) | payer BC, SELFPAY | PROVIDERS: PCP Clinical Nurse Specialist Adult Health; Visit Provider Clinical Nurse Specialist Adult Health | DX: E11.40 Type 2 diabetes mellitus with diabetic neuropathy, unspecified (principal) | CPT/HCPCS: 80053; 80061; 82533; 83036; 85025 ==

== ENCOUNTER → 2024-06-14 14:51 | Outpatient (BNVA) | payer BC, SELFPAY | PROVIDERS: PCP Clinical Nurse Specialist Adult Health; Visit Provider Nurse Practitioner Psychiatric/Mental Health | DX: Z79.899 Other long term (current) drug therapy (principal); F34.0 Cyclothymic disorder; F43.12 Post-traumatic stress disorder, chronic; F41.1 Generalized anxiety disorder | CPT/HCPCS: 80307 ==

== ENCOUNTER 2024-07-08 07:37 | Outpatient (CLI) | payer BC, MEDICAID, SELFPAY ==
[2024-07-01 13:30] VITALS: BP 142/90; BMI 39.2
--- NOTE | 2024-07-08 07:46 | CT_ITS ---
WS: [id number] CT ABDOMEN WITHOUT CONTRAST HISTORY: newly discovered adrenal adenoma Contiguous single phase 5 mm axial imaging performed to the abdomen. Oral contrast has not been provided. Coronal and sagittal reformats are submitted. All CT scans at [facility] use at least one of these dose optimization techniques: automated exposure control; mA and/or kV adjustment per patient size (includes targeted exams where dose is matched to clinical indication); or iterative reconstruction. IV CONTRAST: None Oral contrast: No DLP: 517.16 mGy.cm COMPARISON: Chest CT 01/13/2024, 08/08/2023 and 06/17/2022 Lower thorax: Lung bases are clear. Heart is normal size. No hiatal hernia. Liver/biliary system: Normal size with no intrahepatic dilatation. Gallbladder: Prior cholecystectomy. Pancreas: Normal size pancreas and pancreatic duct. No adjacent inflammation. Spleen: Normal size spleen. No mass or infarct. Very tiny low-attenuation nodule in the central spleen is less than a centimeter. Seen also on the prior CT of 06/17/2022. Adrenal glands: Well-circumscribed low-attenuation mass in the RIGHT adrenal gland measures 2.2 x 1.5 cm. Hounsfield units are -7. Normal LEFT adrenal gland. Right kidney: Normal. Left kidney: Normal. Aorta: Mild atherosclerosis with no aneurysm. Lymphadenopathy: None. Free fluid: None. GI tract: As visualized in the upper abdomen no abnormality. Medicinal tablet in the stomach. No colitis or enteritis. Abdominal wall: Unremarkable abdominal wall. No hernia. Visualized osseous structures: Unremarkable. CT/CT abdomen wo con [id number] IMPRESSION: 1. Benign RIGHT adrenal adenoma measuring 2.2 x 1.5 cm. No additional follow-u p necessary. 2. Prior cholecystectomy.
== END 2024-07-08 07:38 | disposition home or self-care (01) ==
LOC: RAD 07:38
PROVIDERS: PCP Clinical Nurse Specialist Adult Health; Visit Provider Clinical Nurse Specialist Adult Health
DX: D35.01 Benign neoplasm of right adrenal gland (principal); Z90.49 Acquired absence of other specified parts of digestive tract; I70.0 Atherosclerosis of aorta
CPT/HCPCS: 74150; 82533; 82627

== ENCOUNTER → 2024-07-22 11:39 | Outpatient (BNVA) | payer BC, SELFPAY ==
[2024-07-01 13:30] VITALS: BP 142/90; BMI 39.2
== END ==
PROVIDERS: PCP Clinical Nurse Specialist Adult Health; Visit Provider Clinical Nurse Specialist Adult Health
DX: E11.40 Type 2 diabetes mellitus with diabetic neuropathy, unspecified (principal); E11.8 Type 2 diabetes mellitus with unspecified complications; I10 Essential (primary) hypertension; E03.8 Other specified hypothyroidism; E06.3 Autoimmune thyroiditis
CPT/HCPCS: 80053; 82043; 83036; 84443; 85025

== ENCOUNTER → 2024-08-19 11:08 | Outpatient (BNVA) | payer BC, SELFPAY ==
[2024-07-01 13:30] VITALS: BP 142/90; BMI 39.2
== END ==
PROVIDERS: PCP Clinical Nurse Specialist Adult Health; Referring Provider Clinical Nurse Specialist Adult Health; Visit Provider Internal Medicine
DX: E11.40 Type 2 diabetes mellitus with diabetic neuropathy, unspecified (principal); E03.8 Other specified hypothyroidism; E06.3 Autoimmune thyroiditis; D35.01 Benign neoplasm of right adrenal gland; E78.2 Mixed hyperlipidemia
CPT/HCPCS: 36415; 80053; 82088; 84244

== ENCOUNTER 2024-08-23 09:30 | Outpatient (CLI) | payer BC, MEDICAID, SELFPAY ==
[2024-07-01 13:30] VITALS: BP 142/90; BMI 39.2
== END 2024-08-23 09:31 | disposition home or self-care (01) ==
PROVIDERS: PCP Clinical Nurse Specialist Adult Health; Visit Provider Internal Medicine
DX: E11.40 Type 2 diabetes mellitus with diabetic neuropathy, unspecified (principal); E03.8 Other specified hypothyroidism; E06.3 Autoimmune thyroiditis
CPT/HCPCS: 82384; 82530; 83835

== ENCOUNTER → 2024-10-14 10:16 | Outpatient (BNVA) | payer BC, SELFPAY ==
[2024-07-01 13:30] VITALS: BP 142/90; BMI 39.2
== END ==
PROVIDERS: PCP Clinical Nurse Specialist Adult Health; Visit Provider Clinical Nurse Specialist Adult Health
DX: E11.9 Type 2 diabetes mellitus without complications (principal); E03.8 Other specified hypothyroidism; E06.3 Autoimmune thyroiditis; E11.40 Type 2 diabetes mellitus with diabetic neuropathy, unspecified
CPT/HCPCS: 80053; 80061; 82607; 83036; 84443; 85025

== ENCOUNTER → 2024-10-28 10:40 | Outpatient (BNVA) | payer BC, MEDICAID, SELFPAY ==
[2024-07-01 13:30] VITALS: BP 142/90; BMI 39.2
== END ==
PROVIDERS: PCP Clinical Nurse Specialist Adult Health; Visit Provider Podiatrist Foot & Ankle Surgery
DX: M79.671 Pain in right foot (principal); M79.672 Pain in left foot; E11.42 Type 2 diabetes mellitus with diabetic polyneuropathy; G62.9 Polyneuropathy, unspecified; M20.21 Hallux rigidus, right foot; M20.22 Hallux rigidus, left foot; M20.41 Other hammer toe(s) (acquired), right foot; M20.42 Other hammer toe(s) (acquired), left foot
CPT/HCPCS: 73630

== ENCOUNTER 2024-11-30 13:31 | Outpatient (CLI) | payer BC, MEDICAID, SELFPAY ==
[2024-07-01 13:30] VITALS: BP 142/90; BMI 39.2
--- NOTE | 2024-11-30 13:34 | MM_ITS ---
WS: [email or web address] BILATERAL 3D TOMOSYNTHESIS DIGITAL SCREENING MAMMOGRAPHY WITH CAD CLINICAL INFORMATION: SCREENING HISTORY: Screening mammogram. No current complaints. COMPARISON: 2023 TECHNIQUE: Bilateral CC and MLO views. FINDINGS: Scattered fibroglandular densities bilaterally. No suspicious focal mass, asymmetry, calcifications, or architectural distortion. No evidence of malignancy. Lucent centered calcification RIGHT breast MM/MM scr BI tomosynthesis [id number] IMPRESSION: DENSITY: There are scattered areas of fibroglandular density. BI-RADS: 2 - Benign. FOLLOW UP: 1 Year Follow-up Recommend return to annual screening mammography.
== END 2024-11-30 13:32 | disposition home or self-care (01) ==
LOC: RAD 13:31
PROVIDERS: PCP Clinical Nurse Specialist Adult Health; Visit Provider Clinical Nurse Specialist Adult Health
DX: Z12.31 Encounter for screening mammogram for malignant neoplasm of breast (principal); R92.323 Mammographic fibroglandular density, bilateral breasts; R92.1 Mammographic calcification found on diagnostic imaging of breast
CPT/HCPCS: 77063; 77067

== ENCOUNTER 2024-12-10 13:44 | Outpatient (CLI) | payer BC, MEDICAID, SELFPAY ==
[2024-07-01 13:30] VITALS: BP 142/90; BMI 39.2
[2024-12-10 14:38] LABS: Estmated Average Glucose 131; Hemoglobin A1C 6.2 % (4.0-6.0)
[2024-12-10 14:42] LABS: Creatinine Urine, Random 238 mg/dL (28-217); Microalbum Creatinine Ratio Ur 4 mg/dL (0-20)
[2024-12-10 15:00] LABS: Alanine Aminotransferase 12 U/L (0-33); Albumin Level 4.3 g/dL (3.5-5.2); Alkaline Phosphatase 91 U/L (35-105); Anion Gap 19.8 (5-19); Aspartate Amino Transferase 17 U/L (0-32); Blood Urea Nitrogen 15 mg/dL (6-20); Calcium 9.1 mg/dL (8.5-10.5); Carbon Dioxide 23 mmol/L (22-29); Chloride 99 mmol/L (98-107); Cholesterol 187 mg/dL (0-200); Free T4 Free Thyroxine 1.42 ng/dL (0.82-1.77); Globulin 2.9 g/dL (1.3-4.6); Glucose 135 mg/dL (65-115); HDL Cholesterol 43 mg/dL (60-100); Osmolality Calculated 289 mOsm/kg (285-295); Potassium 3.8 mmol/L (3.5-5.1); Sodium 138 mmol/L (136-145); Thyroid Stimulating Hormone 0.08 uIU/mL (0.27-4.20); Total Protein 7.2 g/dL (6.6-8.7); Triglycerides 199 mg/dL (0-150)
== END 2024-12-10 13:45 | disposition home or self-care (01) ==
LOC: LAB 13:45
PROVIDERS: PCP Clinical Nurse Specialist Adult Health; Visit Provider Internal Medicine
DX: E78.2 Mixed hyperlipidemia (principal); I10 Essential (primary) hypertension; E03.8 Other specified hypothyroidism; E06.3 Autoimmune thyroiditis; E11.40 Type 2 diabetes mellitus with diabetic neuropathy, unspecified
CPT/HCPCS: 36415; 80053; 80061; 82044; 83036; 84439; 84443

== ENCOUNTER 2025-01-14 11:14 | Outpatient (CLI) | payer BC, MEDICAID, SELFPAY ==
[2024-07-01 13:30] VITALS: BP 142/90; BMI 39.2
--- NOTE | 2025-01-14 11:15 | CT_ITS ---
WS: [email or web address] LDCT LUNG CANCER SCREENING HISTORY: F17.210 - Nicotine dependence, cigarettes, uncomplicated TECHNIQUE: Axial imaging performed from the apices to 1 cm below the costophrenic angles. Coronal and sagittal reformats are submitted with axial MIP series. All CT scans at [facility] use at least one of these dose optimization techniques: automated exposure control; mA and/or kV adjustment per patient size (includes targeted exams where dose is matched to clinical indication); or iterative reconstruction. DLP: 128.97 mGy.cm DIvol: Mean CTDIvol: 2.70 (mGy) COMPARISON: 01/13/2024 Diagnostic quality: Satisfactory Lungs: Pulmonary hyperinflation. Mild hazy attenuation throughout both lungs. Reidentified is a 4 mm well-circumscribed nodule RIGHT upper lobe adjacent to the fissure which has not changed in size. No new pulmonary nodule identified. No mass or pneumonia. Heart: Normal size heart with no pericardial effusion.. Other findings: Very minimal atherosclerosis aorta. Normal size aorta and pulmonary artery. Negative thyroid. Small stable LEFT axillary lymph nodes. No pathologic lymph nodes in the mediastinum. LEFT adrenal adenoma 2.1 x 1.7 cm is stable. No LEFT adrenal mass. Prior cholecystectomy. Hypertrophic osteophytes in the thoracic spine. CT/CT lung screening [id number] IMPRESSION: LUNG-RADS: 2-Benign Appearance or Behavior FOLLOW UP: 12 Month: Continue annual screening with LDCT OTHER FINDINGS (S MODIFIER): None.
== END 2025-01-14 11:15 | disposition home or self-care (01) ==
PROVIDERS: PCP Clinical Nurse Specialist Adult Health; Visit Provider Clinical Nurse Specialist Adult Health
DX: Z12.2 Encounter for screening for malignant neoplasm of respiratory organs (principal); F17.210 Nicotine dependence, cigarettes, uncomplicated; R91.1 Solitary pulmonary nodule; J43.2 Centrilobular emphysema
CPT/HCPCS: 71271

== ENCOUNTER 2025-02-09 08:46 | Outpatient (CLI) | payer BC, MEDICAID, SELFPAY ==
[2024-07-01 13:30] VITALS: BP 142/90; BMI 39.2
[2025-02-09 10:21] LABS: Free T4 Free Thyroxine 1.09 ng/dL (0.82-1.77); Thyroid Stimulating Hormone 1.00 uIU/mL (0.27-4.20)
== END 2025-02-09 08:47 | disposition home or self-care (01) ==
LOC: LAB 08:47
PROVIDERS: PCP Clinical Nurse Specialist Adult Health; Visit Provider Internal Medicine
DX: D35.01 Benign neoplasm of right adrenal gland (principal); E11.40 Type 2 diabetes mellitus with diabetic neuropathy, unspecified; E03.8 Other specified hypothyroidism; E06.3 Autoimmune thyroiditis; E78.2 Mixed hyperlipidemia
CPT/HCPCS: 36415; 84439; 84443